=== PATIENT | female | born 1995 | race Two or more races ===

== ENCOUNTER 2017-04-07 03:46 | Emergency (ER) | payer MEDICAID ==
[~2017-04-07] VITALS: Ht 170.2 cm; Wt 77.1 kg
[2017-04-07] MEDS ORDERED: SODIUM CHLORIDE 0.9% 1,000 ML IV ONE ×3 (04:15→09:00)
[2017-04-07 04:39] LABS: Basophils # (auto) 0 uL; Basophils % (auto) 0.1 % (0.0-2.0); Eosinophils # (auto) 0 uL; Eosinophils % (auto) 0.1 % (0.0-7.0); Hematocrit 37.6 % (36.0-46.0); Lymphocytes # (auto) 1.2 uL; Lymphocytes % (auto) 15.9 % (10.0-50.0); Mean Corpuscular Hemoglobin 31.1 pg (28.0-32.0); Mean Corpuscular Hgb Conc. 34.6 g/dL (32.0-36.0); Mean Corpuscular Volume 89.9 fL (80.0-100.0); Mean Platelet Volume 8.5 fL (6.9-10.8); Monocytes # (auto) 0.3 uL; Monocytes % (auto) 4.5 % (0.0-12.0); Neutrophils % (auto) 79.4 % (37.0-80.0); Platelet Count (auto) 288 10^3/uL (140-450); Red Cell Distribution Width 13.5 % (11.8-14.3); White Blood Cell 7.5 10^3/uL (4.4-10.8)
[2017-04-07 04:44] LABS: BUN/Creatinine Ratio 14.5; Calcium 9.1 mg/dL (8.5-10.1); Potassium 3.6 mmol/L (3.5-5.1)
[2017-04-07 04:46] LABS: Bilirubin, Total 0.4 mg/dL (0.2-1.0); Total Protein 7.7 g/dL (6.4-8.2)
[2017-04-07 10:18] LABS: Urine Bilirubin Negative (Negative); Urine Blood Negative /uL (Negative); Urine Color Yellow (Yellow); Urine Glucose Normal (Normal); Urine Ketone Negative (Negative); Urine Nitrite Negative (Negative); Urine RBC <1 /hpf (0 - 4); Urine Squamous Epithelial Cell FEW /hpf (<5); Urine Urobilinogen Normal (Negative); Urine pH 5.5 (5.0-8.0)
[2017-04-07 11:44] VITALS: BP 90/66
== END 2017-04-07 11:45 | disposition home or self-care (01) ==
LOC: ER 03:49
DX: F10.120 Alcohol abuse with intoxication, uncomplicated (principal); R51 Headache
CPT/HCPCS: 36415; 80053; 80307; 80320; 81001; 81025; 85025; 94761; 96360; 96361; 99284; J7030

== ENCOUNTER 2019-08-02 01:49 | Emergency (ER) | payer MEDICAID ==
[~2019-08-02] VITALS: Ht 175.3 cm; Wt 100.7 kg
[2019-08-02 02:50] LABS: Basophils # (auto) 0 uL; Basophils % (auto) 0.3 % (0.0-2.0); Eosinophils # (auto) 0 uL; Eosinophils % (auto) 0.3 % (0.0-7.0); Hematocrit 39.8 % (36.0-46.0); Hemoglobin 13.3 g/dL (12.2-16.2); Lymphocytes # (auto) 1.7 uL; Lymphocytes % (auto) 24.9 % (10.0-50.0); Mean Corpuscular Hemoglobin 30.2 pg (28.0-32.0); Mean Corpuscular Hgb Conc. 33.6 g/dL (32.0-36.0); Mean Corpuscular Volume 89.9 fL (80.0-100.0); Monocytes # (auto) 0.4 uL; Monocytes % (auto) 5.5 % (0.0-12.0); Neutrophils # (auto) 4.8 uL; Platelet Count (auto) 338 10^3/uL (140-450); Red Blood Cells 4.42 10^6/uL (4.0-5.20); Red Cell Distribution Width 13.6 % (11.8-14.3)
[2019-08-02 03:06] LABS: Albumin 3.8 g/dL (3.4-5.0); BUN/Creatinine Ratio 8.5; Calcium 8.3 mg/dL (8.5-10.1); Magnesium 2.4 mg/dL (1.6-2.6); Potassium 3.8 mmol/L (3.5-5.1); Salicylate < 1.7 mg/dL (2.8-20.0)
[2019-08-02 03:07] LABS: Acetaminophen < 2.0 ug/mL (10-30)
[2019-08-02 03:09] LABS: Bilirubin, Total 0.5 mg/dL (0.2-1.0); Total Protein 8.1 g/dL (6.4-8.2)
[2019-08-02] MEDS ORDERED: SODIUM CHLORIDE 0.9% 3,000 ML IV ONE (06:00)
[2019-08-02 10:20] VITALS: BP 129/76
== END 2019-08-02 11:03 | disposition home or self-care (01) ==
LOC: EDBD 01:49 → ER 01:49
DX: R45.851 Suicidal ideations (principal); F32.9 Major depressive disorder, single episode, unspecified; F10.129 Alcohol abuse with intoxication, unspecified; Y90.9 Presence of alcohol in blood, level not specified
CPT/HCPCS: 36415; 80053; 80320; 80329; 83735; 84702; 85025; 99284; J7030

== ENCOUNTER 2023-11-25 13:44 | Observation (INO) | payer MEDICAID ==
[~2023-11-25] VITALS: Ht 172.7 cm; Wt 113.8 kg
[2023-11-25 14:03] VITALS: BP 108/75; PULSE 100; RESP 16; O2SAT 96
[2023-11-25] MEDS ORDERED: PREN1TAB71 OR (16:33)
== END 2023-11-25 16:50 | disposition home or self-care (01) ==
LOC: ER 13:44 → LDRP 14:12 → UNDOADMOB 14:12 → UNDODISOB 16:50
PROVIDERS: ADMIT Obstetrics & Gynecology; ATTEND Obstetrics & Gynecology
DX: O26.892 Other specified pregnancy related conditions, second trimester (principal); R10.30 Lower abdominal pain, unspecified; O99.512 Diseases of the respiratory system complicating pregnancy, second trimester; J45.909 Unspecified asthma, uncomplicated; O99.112 Other diseases of the blood and blood-forming organs and certain disorders involving the immune mechanism complicating pregnancy, second trimester; D84.9 Immunodeficiency, unspecified; Z3A.25 25 weeks gestation of pregnancy; V43.52XA Car driver injured in collision with other type car in traffic accident, initial encounter; Y93.89 Activity, other specified; Y92.488 Other paved roadways as the place of occurrence of the external cause; Y99.8 Other external cause status
CPT/HCPCS: 59025; 76815; 81002; 94760; 99284; G0378